=== PATIENT | female | born 1990 | race Two or more races ===

== ENCOUNTER 2020-01-03 04:00 | Day surgery (SDC) | payer OTHER ==
[2020-01-03] MEDS ORDERED: Tylenol #3 PO (09:55)
[2020-01-03] MEDS ORDERED: MORGIDOX100 MG PO (09:55)
== END 2020-01-03 20:30 | disposition home or self-care (01) ==
LOC: CIR.AMB 04:00
PROVIDERS: ATTEND Obstetrics & Gynecology
DX: D25.0 Submucous leiomyoma of uterus (principal); N84.0 Polyp of corpus uteri; Z20.828 Contact with and (suspected) exposure to other viral communicable diseases

== ENCOUNTER 2023-01-20 06:02 | Day surgery (SDC) | payer OTHER ==
[~2023-01-20 06:02] MED LIST: MORGIDOX100 MG PO; Tylenol #3 PO
[2023-01-20 15:31] LABS: HEMATOCRIT 38.6 % (36.0-45.00); HEMOGLOBIN 12.9 g/dL (12.0-15.00); MEAN CELL VOLUME 89.3 fL (80.00-100.00); MEAN CORPUSCULAR HEMOGLOBIN 29.8 pg (27.00-32.0); MEAN CORPUSCULAR HGB CONC 33.4 g/dl (32.0-36.0); PLATELET COUNT 221 K/uL (150-450); RED BLOOD COUNT 4.32 M/uL (4.00-6.00); RED CELL DISTRIBUTION WIDTH 13.8 % (11.5-14.5)
== END 2023-01-20 19:05 | disposition home or self-care (01) ==
LOC: CIR.AMB 06:02
PROVIDERS: Obstetrics & Gynecology; ATTEND Obstetrics & Gynecology Gynecologic Oncology
DX: N83.291 Other ovarian cyst, right side (principal); N80.121 Deep endometriosis of right ovary; I10 Essential (primary) hypertension; Z20.822 Contact with and (suspected) exposure to COVID-19